=== PATIENT | male | born 1990 | race Caucasian/White ===

== ENCOUNTER 2017-02-12 15:00 | Inpatient (IN) | payer BC ==
[~2017-02-12] VITALS: Ht 172.7 cm; Wt 82.7 kg
[2017-02-12] MEDS: RT-ADVAIR HFA 115/21 MCG PER PUFF IH SCH (02:27)
[~2017-02-12 15:00] MED LIST: NASAL SPRAY
[2017-02-12 15:35] VITALS: BP 112/71
[2017-02-12] MEDS ORDERED: ACETAMINOPHEN 500 MG TAB (TYLENOL) PO PRN ×2 (16:00→20:15)
[2017-02-12] MEDS ORDERED: LORA10TA7 PO (16:26)
[2017-02-12] MEDS ORDERED: DOXY100C2 PO (16:26)
[2017-02-12] MEDS ORDERED: BUDE10.2 IH (16:26)
[2017-02-12] MEDS ORDERED: IBUP-2055 PO (16:26)
[2017-02-12] MEDS ORDERED: LEVO500T2 PO (16:26)
[2017-02-12] MEDS ORDERED: ACET-93 PO (16:26)
[2017-02-12] MEDS ORDERED: morphine INJ 4 MG/ML 1 ML (VIAL/SYRINGE) IVP PRN (16:30)
[2017-02-12] MEDS ORDERED: VANCOMYCIN INJECTION 0.1 MG in NS (IVPB) 250 ML IV SCH (16:30)
--- NOTE | 2017-02-12 16:52 | CONSULTATION REPORT ---
DATE OF SERVICE: 02/12/2017 ATTENDING PRIMARY CARE PHYSICIAN: Dr. Sahil Clayton. HISTORY OF PRESENT ILLNESS: The patient is a 26-year-old male who reports that approximately 1 week ago he developed flu-like symptoms with fever, chills and body aches. At that time, he also had reported some tenderness around the tip of the coccyx; however, this resolved on its own over time. He states that the fevers and chills as well as body aches went away; however, he did develop pain and swelling in the left buttock region. He was seen in urgent care and started on an antibiotic. He states that this worsened and then he was seen by his primary care physician and started on another antibiotic approximately 2 days ago. He was seen again in the office today with worsening pain, redness, swelling and erythema along the left buttock encompassing a relatively large segment, approximately 10 x 5 cm in size. This appears to be a complex left gluteal abscess. There are no sinus tracts or drainage at this time. There does not appear to be any sinus tracts in the skin overlying the sacrum to indicate any pilonidal abscesses or cysts. He reports never having these similar types of symptoms before in the past. PAST MEDICAL HISTORY: Asthma, cardiac arrhythmia. PAST SURGICAL HISTORY: Cardiac catheterization and cardiac ablation procedure at [age], excision lipoma, right shoulder. ALLERGIES: No known drug allergies. MEDICATIONS: Symbicort p.r.n., Claritin daily. SOCIAL HISTORY: Negative smoking, negative alcohol. FAMILY HISTORY: Paternal grandmother colon cancer. VITAL SIGNS: Temperature 101.0. REVIEW OF SYSTEMS: Well-nourished male currently guarded secondary to the buttock pain. He is not experiencing any shortness of breath or difficulty breathing. No chest pain, palpitations, diaphoresis. No nausea, vomiting. No diarrhea, constipation. Fever, chills an intermittent basis for the past week. No recent inadvertent weight loss. PHYSICAL EXAMINATION: CHEST: Clear. HEART: Regular. EXTREMITIES: No lower extremity edema, negative Homans sign. HEENT: No scleral icterus. NECK: No cervical lymphadenopathy. ABDOMEN: Soft, nontender, nondistended. PERINEUM: There is an area of redness, warmth, induration, as well as fluctuance encompassing the left buttock and extending to the gluteal fold approximately 10 x 5 cm in size. This does not appear to be in conjunction with the perianal region or as well as the sacral region. ASSESSMENT AND PLAN: A 26-year-old male with a complex left gluteal abscess. Due to the size and nature of this type of abscess, we will proceed with incision drainage, possible debridement, as well as drain placement under a general anesthesia. For now, we will proceed with intravenous antibiotics, as well as adequate pain control. Job ID: [id number] DocumentID: [id number] Dictated Date: 02/12/2017 16:37:35 Physical Sciences Instructor Date: 02/12/2017 16:51:32 Dictated By: DANIEL BAUTISTA MD
--- NOTE | 2017-02-12 16:57 | History & Physical-Hospitalist ---
HPI History of Present Illness: HPI/Chief Complaint Mr. Concepcion is a 26-year-old white male reports little over week history of chills fever and fatigue. He was seen 5 days ago at urgent care and had reported several tick bites the last one occurring about a week prior to the onset of his chills and fever. Doxycycline was initiated. I saw him on the at which time he was continuing to have chills fever or night sweats. He reported new onset of pain around the coccyx area without painful defecation or change in bowel habit. At that time he had some mild inner left gluteal tenderness it was separate from the perineal or perianal area there was no induration or erythema of the skin at that time. I did add Levaquin to his regiment which she has taken that over the last 24 hours has had increasing buttock pain with continued chills and fever all oriented to the left. In my office he was standing on presentation been forward over the exam table which was most comfortable for him. In the interim tick titers drawn at urgent care returned and were negative for all the usual pathogens this however would be considered his initial acute titers. He has no previous history for skin infection and no past history for MRSA. He takes no medications and has no significant past medical history. 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 Date Seen 02/12/17 Time Seen by Provider: 15:00 Attending Physician Zay Clayton MD PCP Zay Clayton MD Referring Physician Date of Admission Feb 12, 2017 at 15:21 Home Medications & Allergies Home Medications Reviewed patient Home Medication Reconciliation Form Allergies Allergies Coded Allergies No Known Drug Allergies (Unverified11/25/13) Past Boamwgf-Dwijfr-Xgggvr Hx Patient Social History Recent Foreign Travel: No Contact w/other who traveled: No Surgeries HX Surgeries: No Respiratory Hx Respiratory Disorders: Yes Cardiovascular Hx Cardiovascular Disorders: Yes Neurological Hx Neurological Disorders: No Genitourinary Hx Genitourinary Disorders: No Gastrointestinal Hx Gastrointestinal Disorders: No Musculoskeletal Hx Musculoskeletal Disorders: No Endocrine Hx Endocrine Disorders: No HEENT HX ENT Disorders: No Cancer Hx Cancer: No Psychosocial Hx Psychiatric Problems: No Integumentary HX Skin/Integumentary Disorder: No Blood Transfusions Hx Blood Disorders: No Adverse Reaction to a Blood Tr: No Review of Systems Date Seen by Provider: Feb 12, 2017 Time Seen by Provider: 15:00 Constitutional: chills, diaphoresis, fever, malaise Respiratory: see HPI, No cough, No dyspnea on exertion, No hemoptysis, No orthopnea, No phlegm, No short of breath, No stridor, No wheezing, No other Cardiovascular: No chest pain, No edema, No Hx of Intervention, No palpitations , No syncope, No vascular heart diseas, No other Skin: other (Swelling and pain involving the left buttock no drainage is been reported.) Physical Exam Physical Exam Vital Signs Vital Sign - Last 12Hours 02/12/17 16:03 Temp 101.0 Capillary Refill : General Appearance: Anxious, Mild Distress Respiratory: Chest Non Tender, Lungs Clear, Normal Breath Sounds, No Accessory Muscle Use, No Respiratory Distress Cardiovascular: Regular Rate, Rhythm, No Edema, No Gallop, No JVD, No Murmur, Normal Peripheral Pulses Gastrointestinal: Normal Bowel Sounds, No Organomegaly, No Pulsatile Mass, Non Tender, Soft Skin: Other (Selective left buttock is red and indurated there are a few whitish pustules forming independently no drainage is noted. Perianal area does not appear to be involved in this nontender. Rectal evaluation was deferred due to patient discomfort) Assessment/Plan Admission Diagnosis 1. Left gluteal abscess sepsis not severe is likely blood tests are pending. He will need incision and drainage with cultures. The case was discussed with Dr. BAUTISTA who has been consulted. Empirically 100 Percent Rule Out a Bowel Etiology We'll Add Zosyn and MRSA Is in the Differential As Well so Vancomycin Will Be Initiated As Well. Patient Reports No Known Drug Allergies. ZAY CLAYTON MD Feb 12, 2017 16:57
[2017-02-12] MEDS ORDERED: CATHETER FLUSH 10 ML SYR IV PRN (17:00)
[2017-02-12] MEDS ORDERED: PIPERACILLIN/TAZOBACTAM 4.5 GM/NS 100 ML IV NR ×2 (17:00)
[2017-02-12 17:11] LABS: BASOPHILS # (AUTO) 0.1 10^3/uL (0.0-0.1); BASOPHILS % (AUTO) 0 % (0-10); EOSINOPHILS # (AUTO) 0.1 10^3/uL (0.0-0.3); EOSINOPHILS % (AUTO) 0 % (0-10); LYMPHOCYTES # (AUTO) 1.9 X 10^3 (1.0-4.0); LYMPHOCYTES % (AUTO) 8 % (12-44); MEAN CORPUSCULAR HEMOGLOBIN 29 PG (25-34); MEAN CORPUSCULAR HGB CONC 34 G/DL (32-36); MEAN CORPUSCULAR VOLUME 87 FL (80-99); MEAN PLATELET VOLUME 11.2 FL (7.4-10.4); MONOCYTES # (AUTO) 2.4 X 10^3 (0.0-1.0); MONOCYTES % (AUTO) 11 % (0-12); NEUTROPHILS # (AUTO) 18.4 X 10^3 (1.8-7.8); NEUTROPHILS % (AUTO) 81 % (42-75); PLATELET COUNT 332 10^3/uL (130-400); RED BLOOD COUNT 4.19 10^6/uL (4.35-5.85); RED CELL DISTRIBUTION WIDTH 13.7 % (10.0-14.5); WHITE BLOOD COUNT 22.8 10^3/uL (4.3-11.0)
[2017-02-12] MEDS: HYDROcodone/APAP 7.5 MG/325 MG (LORTAB, LORCET PLUS) TABLET PO PRN ×3 (17:21→23:49)
[2017-02-12] MEDS ORDERED: VANCOMYCIN 1500 MG/NS 500 ML IVPB IV SCH ×2 (17:30)
[2017-02-12 17:33] LABS: BAND NEUTROPHILS 10 %; BASOPHILS % (MANUAL) 0 %; EOSINOPHILS % (MANUAL) 0 %; LYMPHOCYTES % (MANUAL) 9 %; NEUTROPHILS % (MANUAL) 80 %
[2017-02-12 17:36] LABS: ANION GAP 11 MMOL/L (5-14); BLOOD UREA NITROGEN 10 MG/DL (7-18); BUN/CREATININE RATIO 11 (0-20); CALCIUM 9.1 MG/DL (8.5-10.1); CARBON DIOXIDE 21 MMOL/L (21-32); CHLORIDE 103 MMOL/L (98-107); CREATININE SERUM 0.91 MG/DL (0.60-1.30); GFR ESTIMATED > 60; GLUCOSE 119 MG/DL (70-105); HEMOLYSIS 11 (0-29); ICTERUS 0.9 (0-1.9); LIPEMIA 23 (0-49); POTASSIUM 3.9 MMOL/L (3.6-5.0); SODIUM 135 MMOL/L (135-145)
[2017-02-12] MEDS ORDERED: IBUPROFEN TABLET 200 MG TAB PO PRN (20:15)
[2017-02-12 20:20] VITALS: BP 112/66
[2017-02-12] MEDS ORDERED: RT-SYMBICORT 160/4.5 MCG INHALER PER PUFF IH SCH (21:00)
[2017-02-12] MEDS: PIPERACILLIN SODIUM/TAZOBACTAM 4.5 GM in NS (IVPB) 100 ML IV SCH (23:42)
[2017-02-12] MEDS: NS IV 1000 ML 1,000 ML IV SCH (23:48)
[2017-02-13] VITALS: BP 97/58
[2017-02-13] MEDS: ONDANSETRON 4 MG/2 ML (SDV) Z0FRAN IVP PRN ×3 (01:35→14:51)
[2017-02-13] MEDS: HYDROcodone/APAP 7.5 MG/325 MG (LORTAB, LORCET PLUS) TABLET PO PRN ×3 (04:12→22:11)
[2017-02-13 04:21] VITALS: BP 105/56
[2017-02-13] MEDS ORDERED: VANCOMYCIN 1500 MG/NS 500 ML IVPB IV SCH ×4 (05:00→06:00)
[2017-02-13 07:16] LABS: BASOPHILS # (AUTO) 0.1 10^3/uL (0.0-0.1); BASOPHILS % (AUTO) 0 % (0-10); EOSINOPHILS # (AUTO) 0.1 10^3/uL (0.0-0.3); EOSINOPHILS % (AUTO) 0 % (0-10); LYMPHOCYTES # (AUTO) 3.1 X 10^3 (1.0-4.0); LYMPHOCYTES % (AUTO) 11 % (12-44); MEAN CORPUSCULAR HEMOGLOBIN 30 PG (25-34); MEAN CORPUSCULAR HGB CONC 34 G/DL (32-36); MEAN CORPUSCULAR VOLUME 88 FL (80-99); MEAN PLATELET VOLUME 11.8 FL (7.4-10.4); MONOCYTES # (AUTO) 3.5 X 10^3 (0.0-1.0); MONOCYTES % (AUTO) 12 % (0-12); NEUTROPHILS % (AUTO) 77 % (42-75); PLATELET COUNT 388 10^3/uL (130-400); RED BLOOD COUNT 4.08 10^6/uL (4.35-5.85); RED CELL DISTRIBUTION WIDTH 13.7 % (10.0-14.5); WHITE BLOOD COUNT 28.8 10^3/uL (4.3-11.0)
[2017-02-13 07:29] LABS: ALANINE AMINOTRANSFERASE 74 U/L (0-55); ANION GAP 13 MMOL/L (5-14); ASPARTATE AMINO TRANSFERASE 44 U/L (5-34); BILIRUBIN,TOTAL 1.4 MG/DL (0.1-1.0); BLOOD UREA NITROGEN 9 MG/DL (7-18); BUN/CREATININE RATIO 9 (0-20); CARBON DIOXIDE 19 MMOL/L (21-32); CHLORIDE 103 MMOL/L (98-107); CREATININE SERUM 0.98 MG/DL (0.60-1.30); GFR ESTIMATED > 60; GLUCOSE 120 MG/DL (70-105); HEMOLYSIS 4 (0-29); ICTERUS 1.1 (0-1.9); LIPEMIA 10 (0-49); POTASSIUM 3.8 MMOL/L (3.6-5.0); SODIUM 135 MMOL/L (135-145); TOTAL PROTEIN 6.8 GM/DL (6.4-8.2)
[2017-02-13] MEDS ORDERED: LACTATED RINGERS 1,000 ML IV PRN (07:39)
[2017-02-13] MEDS: PIPERACILLIN SODIUM/TAZOBACTAM 4.5 GM in NS (IVPB) 100 ML IV SCH ×3 (07:55→23:14)
[2017-02-13 08:07] VITALS: BP 95/60
[2017-02-13] MEDS: RT-ADVAIR HFA 115/21 MCG PER PUFF IH SCH ×2 (08:56→19:07)
[2017-02-13] MEDS ORDERED: BUP/EPI 0.5% 1:200,000 (SENSORCAINE) 30 ML VIAL ONE (09:28)
[2017-02-13] MEDS ORDERED: LIDOCAINE 1% INJ 20 ML (XYLOCAINE) VIAL ONE (09:28)
[2017-02-13] MEDS: NS IV 1000 ML 1,000 ML IV SCH ×3 (09:35→22:12)
[2017-02-13] MEDS: LORATADINE (CLARITIN) 10 MG TAB PO SCH (09:35)
[2017-02-13] MEDS ORDERED: SEVOFLURANE (ULTANE) 15 ML INHAL SOLN ONE ×2 (09:40→10:47)
[2017-02-13] MEDS ORDERED: proPOfol 200 MG/20 ML (DIPRIVAN) VIAL IV ONE (09:40)
[2017-02-13] MEDS ORDERED: LIDOCAINE PF 2% 5 ML (XYLOCAINE) VIAL ONE (09:40)
[2017-02-13] MEDS ORDERED: LACTATED RINGERS 1,000 ML IV ONE ×2 (09:40→10:47)
[2017-02-13] MEDS ORDERED: fentaNYL INJECTION 100 MCG/2 ML AMP ONE ×2 (09:41→09:58)
[2017-02-13] MEDS ORDERED: ONDANSETRON 4 MG/2 ML (SDV) Z0FRAN ONE (09:41)
[2017-02-13] MEDS ORDERED: MIDAZOLAM 2 MG/2 ML (VERSED) VIAL ONE (09:41)
--- NOTE | 2017-02-13 09:51 | Progress Note-Pre Operative ---
Pre-Operative Progress Note H&P Reviewed The H&P was reviewed, patient examined and no changes noted. Date Seen by Provider: Feb 13, 2017 Time Seen by Provider: 09:30 Date H&P Reviewed: Feb 13, 2017 Time H&P Reviewed: 09:30 Pre-Operative Diagnosis: left gluteal complex abscess DANIEL BAUTISTA MD Feb 13, 2017 9:51 am
[2017-02-13] MEDS ORDERED: fentaNYL INJECTION 250 MCG/5 ML AMP ONE (10:22)
--- NOTE | 2017-02-13 10:58 | Progress Note-Post Operative ---
Post-Operative Progess Note Surgeon (s)/Parcel Post Carrier (s) Surgeon DANIEL BAUTISTA MD Parcel Post Carrier: none Pre-Operative Diagnosis left gluteal complex abscess Post-Operative Diagnosis left ischiorectal abscess. Procedure & Operative Findings Date of Procedure 02/13/17 Procedure Performed/Findings anal exam under anesthesia, incision and drainage complex ischiorectal abscess. Anesthesia Type general LMA Estimated Blood Loss Estimated blood loss (mL): minimal Specimens/Packing Specimens Removed abscess drainage. Packing: DANIEL Morataya MD Feb 13, 2017 10:58 am
[2017-02-13] MEDS ORDERED: HYDROmorphone (DILAUDID) 2 MG/ML VIAL IVP PRN (11:00)
[2017-02-13] MEDS ORDERED: ONDANSETRON 4 MG/2 ML (SDV) Z0FRAN IVP PRN (11:00)
[2017-02-13] MEDS ORDERED: MEPERIDINE (DEMEROL) INJ 50 MG/ML IVP PRN (11:00)
[2017-02-13] MEDS ORDERED: morphine INJ 10 MG/ML 1ML (SYR OR VIAL) IVP PRN (11:00)
[2017-02-13] MEDS ORDERED: HYDR-3816 PO (11:04)
[2017-02-13] MEDS ORDERED: METR500T PO (11:04)
[2017-02-13] MEDS ORDERED: AMOX-358 PO (11:04)
--- NOTE | 2017-02-13 11:06 | Discharge Inst-Surgical ---
D/C Lap Instructions-KIDO New, Converted, or Re-Newed RX: RX on Chart Follow Up Appt in 1week Activity as tolerated No driving for 24 hours No driving while on pain medications dressing: back wet to dry with kerlix/gauze followed by gauze followed by ABD pad BID. Regular Diet(add stool softnener BID) Symptoms to Report: Fever over 101 degree F, Nausea/Vomiting Infection Signs and Symptoms to report: Increased redness, Foul odor of wound, Increased drainage Bathing instructions: May shower Operative Area Clean/Dry; Keep incision clean/dry If any problems/questions: Contact your physician or go to Emergency Room DANIEL BAUTISTA MD Feb 13, 2017 11:06 am
--- NOTE | 2017-02-13 11:31 | Progress Note-Hospitalist ---
Subjective HPI/CC On Admission Date Seen by Provider: Feb 13, 2017 Time Seen by Provider: 07:30 Mr. Concepcion is a 26-year-old white male reports little over week history of chills fever and fatigue. He was seen 5 days ago at urgent care and had reported several tick bites the last one occurring about a week prior to the onset of his chills and fever. Doxycycline was initiated. I saw him on the at which time he was continuing to have chills fever or night sweats. He reported new onset of pain around the coccyx area without painful defecation or change in bowel habit. At that time he had some mild inner left gluteal tenderness it was separate from the perineal or perianal area there was no induration or erythema of the skin at that time. I did add Levaquin to his regiment which she has taken that over the last 24 hours has had increasing buttock pain with continued chills and fever all oriented to the left. In my office he was standing on presentation been forward over the exam table which was most comfortable for him. In the interim tick titers drawn at urgent care returned and were negative for all the usual pathogens this however would be considered his initial acute titers. He has no previous history for skin infection and no past history for MRSA. He takes no medications and has no significant past medical history. 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 Subjective/Events-last exam Mr. Concepcion reports currently on his right side when he is not moving his pain level as a 2 out of 10 having received hydrocodone about 4 hours ago. MAXIMUM TEMPERATURE 102.8 without Reiger's last evening. He denies shortness of breath or heart racing. Objective Exam Vital Signs Vital Sign - Last 12Hours 02/12/17 15:35 Temp 101.3 Pulse 102 Resp 18 B/P (MAP) 112/71 Pulse Ox 98 O2 Delivery Room Air Capillary Refill : General Appearance: No Apparent Distress, WD/WN Respiratory: Chest Non Tender, Lungs Clear, Normal Breath Sounds, No Accessory Muscle Use, No Respiratory Distress Cardiovascular: Regular Rate, Rhythm, No Edema, No Gallop, No JVD, No Murmur Gastrointestinal: Normal Bowel Sounds, No Organomegaly, No Pulsatile Mass, Non Tender, Soft Skin: Normal Color, Warm/Dry, Other (Buttock swelling and erythema is no worse. There is no evidence for drainage at the base of the buttock area small pustule is noted without drainage. This is essentially unchanged from yesterday.) Results/Procedures Lab Laboratory Tests 02/12/17 16:58 02/13/17 06:45 Assessment/Plan Assessment and Plan Assess & Plan/Chief Complaint 1. Left gluteal abscess patient is scheduled for I&D later this morning. There is no evidence for progression of sepsis. His white count is higher but clinically appears no worse than yesterday and is comfortable at rest with pain medication. We'll continue to monitor and maintain Zosyn and vancomycin for now. 2. Mildly elevated LFTs likely due to number 1. Repeat CMP in the morning with CBC. ZAY LEE MD Feb 13, 2017 11:31
[2017-02-13 12:00] VITALS: BP 100/63
--- NOTE | 2017-02-13 13:40 | OPERATIVE REPORT ---
DATE OF SERVICE: 02/13/2017 PREOPERATIVE DIAGNOSIS: Left complex gluteal abscess. POSTOPERATIVE DIAGNOSIS: Left ischiorectal abscess. No fistula, no rectal mucosal inflammatory changes. PROCEDURE: Anal exam under anesthesia, incision and drainage complex ischiorectal abscess with drain placement. SURGEON: Dr. Daniel Arellano MD. ANESTHESIA: General laryngeal mask airway. ESTIMATED BLOOD LOSS: 100 mL. FINDINGS: Ischioanal rectal abscess, which was complex with multiple loculations. There were no signs of necrotizing soft tissue infection. There were no sinus tracts to the anus or rectum. There were no rectal mucosal inflammatory changes. DISPOSITION: The patient tolerated the procedure well. INDICATIONS: The patient is a 26-year-old male who reports that approximately 1 week ago he noticed flu-like symptoms with fever, chills and body aches and thought he was possibly bit by a tick. He also had some tenderness around the tip of the coccyx; however, this resolved on its own over time. He reported that the fever and chills, as well as body aches improved; however, he developed pain and swelling in the left buttock region, which progressed. He was seen in urgent care and started on antibiotics; however, this worsened and he was seen by his primary care physician and started on another antibiotic. He was seen again in the office and found to have worsening redness, swelling and erythema along the left buttocks which was relatively a large segment, approximately 10 x 5 cm in size. He does not report any previous history of perirectal or perianal abscesses or any draining cysts. DESCRIPTION OF PROCEDURE: The patient was brought to the operating room, laid supine on the table. After adequate IV pain and sedative medications and general laryngeal mask airway intubation, the patient was placed in modified lithotomy and the perineum prepped and draped in standard surgical fashion. We then proceeded with a pudendal nerve block using 1% lidocaine. The anal sphincters were relaxed and a speculum was placed. A thorough examination was performed with no sinus tracts or communication of the rectum or anus to the abscess. There was also no mucosal inflammatory changes of the rectum to indicate an inflammatory bowel disease. The left buttock region was then anesthetized using 0.5% Marcaine with epinephrine. A vertical skin incision was made using a 10 blade. A large abscess was identified, which was with multiple loculations. This did track superiorly to the levator ani, consistent with an ischiorectal abscess. This was debrided using blunt finger dissection. We then proceeded with copious irrigation of the abscess and broke up all other loculations in the perineal region. Good hemostasis was achieved using electrocautery. We then proceeded to place two 1-inch Whick drains exiting the lateral and posterior buttock region and placed these in the abscess cavity. The abscess cavity was then packed with saline-soaked Kerlix, followed by sterile gauze, followed by ABD pad. Mesh pants were then applied. The patient tolerated the procedure well. We will continue him on IV antibiotics. We will also start a regular diet as well as stool softeners. We will instruct staff, as well as family to proceed with packing of the abscess cavity on a b.i.d. basis and to keep the area clean and dry, as well as continue oral antibiotics for approximately 2 weeks. Job ID: [id number] DocumentID: [id number] Dictated Date: 02/13/2017 11:14:11 Upholstery Estimator Date: 02/13/2017 12:11:15 Dictated By: DANIEL BAUTISTA MD
[2017-02-13] MEDS ORDERED: TROUGH ORDER-PHARMACY XX NR (16:00)
[2017-02-13 16:50] VITALS: BP 103/64
[2017-02-13] MEDS: VANCOMYCIN 1,750 MG/NS 500 ML IVPB IV SCH ×2 (18:06)
[2017-02-13 19:35] VITALS: BP 99/66
[2017-02-14] VITALS: BP 107/52
[2017-02-14] MEDS: HYDROcodone/APAP 7.5 MG/325 MG (LORTAB, LORCET PLUS) TABLET PO PRN ×6 (03:36→23:03)
[2017-02-14 04:30] VITALS: BP 110/54
[2017-02-14] MEDS: VANCOMYCIN 1,750 MG/NS 500 ML IVPB IV SCH ×4 (04:56→17:25)
[2017-02-14 05:40] LABS: MEAN PLATELET VOLUME 11.2 FL (7.4-10.4); RED BLOOD COUNT 3.34 10^6/uL (4.35-5.85); RED CELL DISTRIBUTION WIDTH 13.8 % (10.0-14.5); WHITE BLOOD COUNT 21.4 10^3/uL (4.3-11.0)
[2017-02-14 06:01] LABS: ALANINE AMINOTRANSFERASE 43 U/L (0-55); ALBUMIN 2.5 GM/DL (3.2-4.5); ANION GAP 11 MMOL/L (5-14); ASPARTATE AMINO TRANSFERASE 19 U/L (5-34); BILIRUBIN,TOTAL 0.9 MG/DL (0.1-1.0); BLOOD UREA NITROGEN 8 MG/DL (7-18); BUN/CREATININE RATIO 8 (0-20); CALCIUM 8.2 MG/DL (8.5-10.1); CARBON DIOXIDE 21 MMOL/L (21-32); CHLORIDE 105 MMOL/L (98-107); CREATININE SERUM 0.98 MG/DL (0.60-1.30); GFR ESTIMATED > 60; GLUCOSE 105 MG/DL (70-105); HEMOLYSIS 5 (-100-29); ICTERUS 0.9 (-100-1.9); LIPEMIA 4 (-100-49); POTASSIUM 3.8 MMOL/L (3.6-5.0); SODIUM 137 MMOL/L (135-145); TOTAL PROTEIN 5.4 GM/DL (6.4-8.2)
[2017-02-14] MEDS: PIPERACILLIN SODIUM/TAZOBACTAM 4.5 GM in NS (IVPB) 100 ML IV SCH ×3 (06:51→22:59)
[2017-02-14] MEDS: NS IV 1000 ML 1,000 ML IV SCH ×2 (08:11→17:25)
[2017-02-14 08:21] VITALS: BP 111/55
[2017-02-14] MEDS: RT-ADVAIR HFA 115/21 MCG PER PUFF IH SCH ×2 (08:49→19:23)
[2017-02-14] MEDS: LORATADINE (CLARITIN) 10 MG TAB PO SCH (09:13)
--- NOTE | 2017-02-14 10:31 | Progress Note-Standard ---
Standard Progress Note Progress Notes/Assess & Plan Date Seen by Provider: Feb 14, 2017 Time Seen by Provider: 10:05 Progress/Assessment & Plan pain improved. Afebrile. White cell count decreased to 21,000. Gram-negative rods and gram-positive cocci on initial cultures. On vancomycin and Zosyn. We 'll remove the pack and retained the drains. Possible discharge in 24 hours. Final Diagnosis Perirectal abscess SAMARA LUNA MD Feb 14, 2017 10:31 am
--- NOTE | 2017-02-14 10:44 | Progress Note-Hospitalist ---
Progress Note HPI/CC on Admission Mr. Concepcion is a 26-year-old white male reports little over week history of chills fever and fatigue. He was seen 5 days ago at urgent care and had reported several tick bites the last one occurring about a week prior to the onset of his chills and fever. Doxycycline was initiated. I saw him on the at which time he was continuing to have chills fever or night sweats. He reported new onset of pain around the coccyx area without painful defecation or change in bowel habit. At that time he had some mild inner left gluteal tenderness it was separate from the perineal or perianal area there was no induration or erythema of the skin at that time. I did add Levaquin to his regiment which she has taken that over the last 24 hours has had increasing buttock pain with continued chills and fever all oriented to the left. In my office he was standing on presentation been forward over the exam table which was most comfortable for him. In the interim tick titers drawn at urgent care returned and were negative for all the usual pathogens this however would be considered his initial acute titers. He has no previous history for skin infection and no past history for MRSA. He takes no medications and has no significant past medical history. 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 Progress Notes/Assess & Plan Date Seen 02/14/17 Time Seen by Provider: 10:30 Diagonsis/Assessment & Plan Patient doing much better and getting up and around Responding to antibiotics and cultures are pending He did speak with Dr. Bhatt who is very pleased with his progress and dressing and packing will be changed White count is down and liver enzyme elevation is now resolved No BM so will initiate MiraLAX and Colace Father wondering why the stool softner was not started immediately so will get that started right away No fever, vital signs stable, pleasant, improved, family at bedside Regular rate and rhythm, clear to all sedation bilaterally No edema Laboratory Tests 02/14/17 05:15 Assessment: 1. Left gluteal abscess s/p I&D yesterday POD # 1improved on Zosyn and vancomycin and cultures final are pending 2. Mildly elevated LFTs likely due to # 1 now resolved. 3. Post operative constipation Plan: Continue antibiotics empirically until cultures completed Dressing and packing changed per surgery orders MiraLAX and Colace Pain control Check labs in BATSHEVA Weiss DO Feb 14, 2017 10:44
[2017-02-14] MEDS: POLYETHYLENE GLYCOL 17 GM (MIRALAX) PACK PO SCH ×2 (11:04→20:29)
[2017-02-14] MEDS: DOCUSATE SODIUM 100 MG (COLACE) CAP PO SCH ×2 (11:05→20:29)
[2017-02-14 12:17] VITALS: BP 109/59
--- NOTE | 2017-02-14 12:44 | Anesthesia-General Post-Op ---
General Patient Condition Mental Status/LOC: Same as Preop Cardiovascular: Satisfactory Nausea/Vomiting: Absent Respiratory: Satisfactory Pain: Controlled Complications: Absent Post Op Complications Complications None Follow Up Care/Instructions Patient Instructions None needed. Anesthesia/Patient Condition Patient Condition Patient is doing well, no complaints, stable vital signs, no apparent adverse anesthesia problems. No complications reported per nursing. MINA VAZQUEZ CRNA Feb 14, 2017 12:44
[2017-02-14 16:35] VITALS: BP 97/57
[2017-02-14 23:55] VITALS: BP 116/68
[2017-02-15] MEDS: NS IV 1000 ML 1,000 ML IV SCH ×2 (03:49→08:18)
[2017-02-15] MEDS: HYDROcodone/APAP 7.5 MG/325 MG (LORTAB, LORCET PLUS) TABLET PO PRN ×3 (03:49→07:59)
[2017-02-15] MEDS ORDERED: TROUGH ORDER-PHARMACY XX NR (04:00)
[2017-02-15 04:33] LABS: BASOPHILS # (AUTO) 0.1 10^3/uL (0.0-0.1); BASOPHILS % (AUTO) 0 % (0-10); EOSINOPHILS # (AUTO) 0.4 10^3/uL (0.0-0.3); EOSINOPHILS % (AUTO) 3 % (0-10); LYMPHOCYTES # (AUTO) 2.6 X 10^3 (1.0-4.0); LYMPHOCYTES % (AUTO) 16 % (12-44); MEAN CORPUSCULAR HEMOGLOBIN 29 PG (25-34); MEAN CORPUSCULAR HGB CONC 33 G/DL (32-36); MEAN CORPUSCULAR VOLUME 88 FL (80-99); MEAN PLATELET VOLUME 10.7 FL (7.4-10.4); MONOCYTES # (AUTO) 1.3 X 10^3 (0.0-1.0); MONOCYTES % (AUTO) 8 % (0-12); NEUTROPHILS # (AUTO) 11.8 X 10^3 (1.8-7.8); NEUTROPHILS % (AUTO) 73 % (42-75); PLATELET COUNT 410 10^3/uL (130-400); RED BLOOD COUNT 3.49 10^6/uL (4.35-5.85); RED CELL DISTRIBUTION WIDTH 14.1 % (10.0-14.5); WHITE BLOOD COUNT 16.2 10^3/uL (4.3-11.0)
[2017-02-15 04:56] LABS: ALANINE AMINOTRANSFERASE 37 U/L (0-55); ALBUMIN 2.5 GM/DL (3.2-4.5); ANION GAP 11 MMOL/L (5-14); ASPARTATE AMINO TRANSFERASE 22 U/L (5-34); BILIRUBIN,TOTAL 0.6 MG/DL (0.1-1.0); BLOOD UREA NITROGEN 6 MG/DL (7-18); BUN/CREATININE RATIO 6 (0-20); CALCIUM 8.5 MG/DL (8.5-10.1); CARBON DIOXIDE 23 MMOL/L (21-32); CHLORIDE 104 MMOL/L (98-107); CREATININE SERUM 1.06 MG/DL (0.60-1.30); GFR ESTIMATED > 60; GLUCOSE 110 MG/DL (70-105); HEMOLYSIS 5 (-100-29); ICTERUS 0.7 (-100-1.9); LIPEMIA 3 (-100-49); POTASSIUM 3.9 MMOL/L (3.6-5.0); SODIUM 138 MMOL/L (135-145); TOTAL PROTEIN 5.9 GM/DL (6.4-8.2)
[2017-02-15] MEDS: VANCOMYCIN 1,750 MG/NS 500 ML IVPB IV SCH ×2 (05:08)
[2017-02-15] MEDS: PIPERACILLIN SODIUM/TAZOBACTAM 4.5 GM in NS (IVPB) 100 ML IV SCH (06:10)
[2017-02-15] MEDS: DOCUSATE SODIUM 100 MG (COLACE) CAP PO SCH (07:59)
[2017-02-15] MEDS: LORATADINE (CLARITIN) 10 MG TAB PO SCH (08:00)
[2017-02-15] MEDS: POLYETHYLENE GLYCOL 17 GM (MIRALAX) PACK PO SCH (08:00)
[2017-02-15 08:30] VITALS: BP 100/62
[2017-02-15] MEDS: RT-ADVAIR HFA 115/21 MCG PER PUFF IH SCH (10:47)
[2017-02-15] MEDS ORDERED: ANTACID SUSP 30 ML UDC (MYLANTA) ONE (12:19)
[2017-02-15] MEDS ORDERED: ANTACID SUSP 30 ML UDC (MYLANTA) PO ONE (12:30)
--- NOTE | 2017-02-15 12:51 | Progress Note-Standard ---
Standard Progress Note Progress Notes/Assess & Plan Date Seen by Provider: Feb 15, 2017 Time Seen by Provider: 11:10 Progress/Assessment & Plan pain improved. Afebrile. White cell count decreased to 21,000. Gram-negative rods and gram-positive cocci on initial cultures. On vancomycin and Zosyn. We 'll remove the pack and retained the drains. Possible discharge in 24 hours. pain and cellulitis improved. White cell count decreased to 16,000. [place] drain intact. Could be discharged on antibiotics and pain medications Final Diagnosis perirectal abscess SAMARA LUNA MD Feb 15, 2017 12:51 pm
[2017-02-15 13:55] VITALS: BP 100/62
== END 2017-02-15 14:02 | disposition home or self-care (01) | DRG 349 ==
LOC: 4TH 15:21
PROVIDERS: ADMIT Internal Medicine; ATTEND Internal Medicine
PROC: 0D9Q00Z Drainage of Anus with Drainage Device, Open Approach (ICD-10-PCS; principal; 2017-02-13 09:52)
DX: K61.3 Ischiorectal abscess (principal); K59.00 Constipation, unspecified
CPT/HCPCS: 36415; 80048; 80053; 80202; 85007; 85025; 85027; 87070; 87075; 87077; 87081; 87186; 87205; 94640; 94760

== ENCOUNTER 2017-09-04 05:34 | Outpatient (CLI) | payer BC ==
[~2017-09-04] VITALS: Ht 172.7 cm; Wt 81.6 kg
[~2017-09-04 05:34] MED LIST changes: +ACET-93 PO; +AMOX-358 PO; +BUDE10.2 IH; +DOXY100C2 PO; +HYDR-3816 PO; +IBUP-2055 PO; +LEVO500T2 PO; +LORA10TA7 PO; +METR500T PO
== END 2017-09-04 15:31 ==
LOC: PREOP 05:34
PROVIDERS: ATTEND Surgery
DX: Z01.818 Encounter for other preprocedural examination (principal); K60.5 Anorectal fistula

== ENCOUNTER 2017-09-10 07:12 | Day surgery (SDC) | payer BC ==
[~2017-09-10] VITALS: Ht 172.7 cm; Wt 81.6 kg
[2017-09-10] MEDS ORDERED: ONDANSETRON 4 MG/2 ML (SDV) Z0FRAN ONE (07:39)
[2017-09-10] MEDS ORDERED: LIDOCAINE PF 2% 5 ML (XYLOCAINE) VIAL ONE (07:39)
[2017-09-10] MEDS ORDERED: DEXAMETHASONE 10 MG/ML (DECADRON) 1 ML VIAL ONE (07:39)
[2017-09-10] MEDS ORDERED: LACTATED RINGERS 1,000 ML IV PRN ×2 (07:39→08:35)
[2017-09-10] MEDS ORDERED: SEVOFLURANE (ULTANE) 15 ML INHAL SOLN ONE ×3 (07:39→09:29)
[2017-09-10] MEDS ORDERED: proPOfol 200 MG/20 ML (DIPRIVAN) VIAL IV ONE (07:39)
[2017-09-10] MEDS ORDERED: MIDAZOLAM 2 MG/2 ML (VERSED) VIAL ONE (07:40)
[2017-09-10] MEDS ORDERED: fentaNYL INJECTION 100 MCG/2 ML AMP ONE (07:40)
[2017-09-10 07:43] VITALS: BP 115/71
[2017-09-10] MEDS ORDERED: ceFAZolin 1 GM/NS 50 ML IVPB IV ONE ×2 (07:45)
[2017-09-10] MEDS ORDERED: ceFAZolin INJECTION 1,000 MG in NS (IVPB) 50 ML IV ONE (07:45)
[2017-09-10] MEDS ORDERED: BUPIVACAINE 0.5% 30 ML (SENSORCAINE) VIAL ONE (07:48)
[2017-09-10] MEDS ORDERED: LIDOCAINE/EPI 1%-1:200,000 (XYLOCAINE) 10 ML VIAL ONE (07:48)
--- NOTE | 2017-09-10 08:08 | Progress Note-Pre Operative ---
Pre-Operative Progress Note H&P Reviewed The H&P was reviewed, patient examined and no changes noted. Date Seen by Provider: Sep 10, 2017 Time Seen by Provider: 07:55 Date H&P Reviewed: Sep 10, 2017 Time H&P Reviewed: 08:00 Pre-Operative Diagnosis: Anal Fistula IMER THEODORE APRN Sep 10, 2017 8:08 am
[2017-09-10] MEDS ORDERED: morphine INJ 10 MG/ML 1ML (SYR OR VIAL) IVP PRN ×2 (08:15→10:15)
[2017-09-10] MEDS ORDERED: ONDANSETRON 4 MG/2 ML (SDV) Z0FRAN IVP PRN ×2 (08:15→10:15)
[2017-09-10] MEDS ORDERED: ACETAMINOPHEN 325 MG TABLET/CAPLET (TYLENOL) PO PRN (08:15)
[2017-09-10] MEDS ORDERED: HYDROcodone/APAP 7.5 MG/325 MG (LORTAB, LORCET PLUS) TABLET PO PRN (08:15)
[2017-09-10] MEDS ORDERED: fentaNYL INJECTION 250 MCG/5 ML AMP ONE (09:04)
--- NOTE | 2017-09-10 09:58 | Progress Note-Post Operative ---
Post-Operative Progess Note Surgeon (s)/8Th Grade Mathematics Teacher (s) Surgeon DANIEL BAUTISTA MD 8Th Grade Mathematics Teacher: samantha garcia INSOLE LIP TURNER Pre-Operative Diagnosis Anal Fistula Post-Operative Diagnosis same(supra external sphincteric) Procedure & Operative Findings Date of Procedure 09/10/17 Procedure Performed/Findings anal exam under anesthesia, placement seton, colonoscopy. Anesthesia Type GET Estimated Blood Loss Estimated blood loss (mL): minimal Specimens/Packing Specimens Removed none DANIEL BAUTISTA MD Sep 10, 2017 9:58 am
[2017-09-10] MEDS ORDERED: HYDR-3816 PO (10:00)
--- NOTE | 2017-09-10 10:01 | Discharge Inst-Surgical ---
D/C Lap Instructions-KIDO New, Converted, or Re-Newed RX: RX on Chart Follow Up Appt in 1 week Activity as tolerated High Fiber Diet 25g or more per day Avoid Alcohol, Caffeine, Spicy [place] and Acid foods. Drink 64 fluid oz or more of fluids per day. Symptoms to Report: Fever over 101 degree F, Nausea/Vomiting If any problems/questions: Contact your physician or go to Emergency Room DANIEL BAUTISTA MD Sep 10, 2017 10:01 am
[2017-09-10 10:45] VITALS: BP 121/74
[2017-09-10 11:15] VITALS: BP 107/68
[2017-09-10 11:48] VITALS: BP 107/68
--- NOTE | 2017-09-10 15:38 | OPERATIVE REPORT ---
DATE OF SERVICE: 09/10/2017 ATTENDING PRIMARY CARE PHYSICIAN: Dr. Sahil Clayton. PREOPERATIVE DIAGNOSIS: Anal fissure with previous history of perianal abscess status post incision and drainage. 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 PROCEDURE: Anal exam under anesthesia with placement of Seton suture, colonoscopy. SURGEON: Dr. Phelan. FURNACE OPERATOR AND TENDER: Jorge Patino APRN. ANESTHESIA: General endotracheal. ESTIMATED BLOOD LOSS: Minimal. 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 The remainder of the rectum and colon were normal. There were no mucosal inflammatory changes to indicate any inflammatory bowel disease. DISPOSITION: The patient tolerated the procedure well. INDICATIONS: The patient is a 27-year-old male who was initially seen in 01/2017. Flu-like symptoms including fever, chills and body aches and thought that this was possibly due to tick bite. He then developed tenderness and redness along the sacrococcygeal region. He was seen in urgent care and antibiotics started; however, pain and swelling had worsened. On 02/13/2017, he underwent an anal exam under anesthesia as well as incision and drainage of complex ischiorectal abscess with drain placement. He did well after surgery and was placed on antibiotics and the wound did close by secondary intention. He developed recurrent episodes of small areas of swelling along the left lateral perirectal or perianal region with clear to serous drainage. This was more consistent with a perianal fistula. He has also not had a colonoscopy up to this point in his life. He does not report any episodes of crampy abdominal pain as well as no diarrhea or mucusy stools with mixed of blood. DESCRIPTION OF PROCEDURE: The patient was brought to the operating room, laid supine on the table. After adequate IV pain and sedating medications and general endotracheal intubation, the patient was placed in lithotomy position and the perineum prepped and draped in standard surgical fashion. A 0.5% Marcaine was then used to perform a pudendal nerve block causing relaxation of the anal sphincters. A self-retaining retractor was then placed and the opening in the rectal mucosa was identified along the 9 o'clock position in the patient in supine position. The chronic inflammatory tissue along the perianal region on the left lateral buttock was then probed and opened directly into the opening in the rectal mucosa. This was then palpated and was identified to be within the outside of the external anal sphincters; however, within the 4 inferior in the internal anal sphincters. It was then decided to proceed with placement of a Seton suture. The probe with the hook was then placed through the same tract and a vessel loop placed through the fistula tract. Mild tension was placed in an 0 silk suture was tied to place a constant tension on the area. Good hemostasis was observed. No mucosal inflammatory changes are indicated around the anus nor any skin texture indicate any inflammatory bowel disease. Under the same anesthesia, we then proceeded with the colonoscopy. The colonoscope was placed in the anus visualizing the intubated into the anus visualizing the rectal mucosa with no mucosal inflammatory changes as well as no polyps or any neoplasms. We then proceeded through the sigmoid colon where no diverticulosis identified. We then advanced to the remainder of the descending, transverse, ascending colon and the cecum. These segments were normal. There were no polyps or any neoplasms as well as no mucosal inflammatory changes identified throughout the colon to indicate any inflammatory bowel disease. The endoscope was then slowly withdrawn taking a second look and suctioning of residual air with no additional findings. The anus was then plug created by Gelfoam wrapped in Surgicel and Surgilube was placed in the anal canal for hemostasis. This was then covered with gauze ABD pad. The patient tolerated the procedure well. We will have him return in the office on a weekly basis to place tension on the Seton suture in a stepwise fashion to allow for the facial tract to be excised in a slow manner and not compromising the external anal sphincter. He will be instructed to proceed with Sitz baths as well as a high fiber diet to promote soft stools on a daily basis. Job ID: [id number] DocumentID: [id number] Dictated Date: 09/10/2017 10:09:00 Fish And Wildlife Technician Date: 09/10/2017 15:38:06 Dictated By: MD DAVID MURRAY
== END 2017-09-10 11:47 | disposition home or self-care (01) ==
LOC: SDC 07:12
PROVIDERS: ATTEND Surgery
DX: K60.2 Anal fissure, unspecified (principal); J45.909 Unspecified asthma, uncomplicated; Z80.0 Family history of malignant neoplasm of digestive organs
CPT/HCPCS: 87081